=== PATIENT | male | born 1995 | race Caucasian/White ===

== ENCOUNTER 2017-05-03 10:18 | Emergency (ER) | payer OTHER ==
[2017-05-03 10:34] VITALS: BP 128/78
[2017-05-03] MEDS ORDERED: DEXAMETHASONE 10 MG/ML VIAL PO STA (12:36)
--- NOTE | 2017-05-03 12:39 | ED Physician Documentation ---
History of Present Illness - Stated complaint Stated Complaint: SPIDER BITE ON LEFT EYE - Chief complaint Chief Complaint: General - History obtained from History obtained from: Patient - History of Present Illness Timing: Last night Pain level max: 4 Pain level now: 1 - Additonal information Additional information: Patient is a 21-year-old male who woke up this morning with swelling and redness underneath the left eye. This has since nearly resolved. States he is unsure what happened, thinks a spider may have bit him in his sleep. No visual changes. No headache. No fever. Better with time, nothing makes it worse. Review of Systems Constitutional: denies: Fever, Chills Eyes: denies: Loss of vision, Decreased vision, Photophobia, Discharge, Irritation Ears: denies: Ear pain Nose: denies: Rhinorrhea / runny nose, Congestion Respiratory: denies: Cough PD PAST MEDICAL HISTORY - Past Medical History Past Medical History: No - Past Surgical History Past Surgical History: No - Present Medications Home Medications: Ambulatory Orders Medication Instructions Recorded Confirmed No Known Home Medications [No 05/03/17 05/03/17 Known Home Medications] - Allergies Allergies/Adverse Reactions: Allergies Allergy/AdvReac Type Severity Reaction Status Date / Time No Known Drug Allergies Allergy Verified 05/03/17 10:34 - Social History Does the pt smoke?: Yes Smoking Status: Current every day smoker Does the pt drink ETOH?: No Does the pt have substance abuse?: No - Immunizations Immunizations are current?: Yes Immunizations: TDAP current <10years - POLST Patient has POLST: No PD ED PE NORMAL - Vitals Vital signs reviewed: Yes - General General: Alert and oriented X 3, No acute distress - HEENT HEENT: PERRL, EOMI, Ears normal, Moist mucous membranes, Other (Minimal swelling to the upper left cheek. Normal eyelid. No stye. ) - Neck Neck: Supple, no meningeal sign - Derm Derm: Warm and dry - Neuro Neuro: Alert and oriented X 3 Results - Vitals Vitals: Vital Signs - 24 hr 05/03/17 10:31 Temperature 36.5 C Heart Rate 66 Respiratory 20 Rate Blood Pressure 128/78 O2 Saturation 100 Oxygen O2 Source Room air PD MEDICAL DECISION MAKING - ED course Complexity details: considered differential, d/w patient ED course: Patient is a 21-year-old male who presents to the emergency department with what appears to be a slight allergic reaction, possibly secondary to an insect bite on the left cheek today. This is nearly resolved in the emergency department. No evidence of abscess. No cellulitis. No evidence of orbital cellulitis. No discharge from the eye. No conjunctivitis. Normal lid examination. Patient counseled regarding signs and symptoms for which I believe and urgent re-evaluation would be necessary. Patient with good understanding of and agreement to plan and is comfortable going home at this time This document was made in part using voice recognition software. While efforts are made to proofread this document, sound alike and grammatical errors may occur. Departure - Departure Disposition: 01 Home, Self Care Clinical Impression: Allergic reaction Qualifiers: Encounter type: initial encounter Qualified Code(s): T78.40XA - Allergy, unspecified, initial encounter Condition: Good Instructions: ED Allergic Reaction Local Other Follow-Up: NEETA HANLEY MD [Primary Care Provider] - Within 1 week Comments: Return if you worsen. You can also use benadryl at home for swelling. Discharge Date/Time: 05/03/17 12:44
== END 2017-05-03 12:44 | disposition home or self-care (01) ==
LOC: ED 10:18
DX: T78.40XA Allergy, unspecified, initial encounter (principal); X58.XXXA Exposure to other specified factors, initial encounter; F17.200 Nicotine dependence, unspecified, uncomplicated
CPT/HCPCS: 99283

== ENCOUNTER 2017-07-09 06:50 | Emergency (ER) | payer OTHER ==
[2017-07-09 07:11] LABS: BILIRUBIN,URINE NEGATIVE (NEGATIVE); CLARITY,URINE CLEAR (CLEAR); GLUCOSE, URINE (UA) NEGATIVE (NEGATIVE); KETONES,URINE (UA) NEGATIVE (NEGATIVE); LEUKOCYTE ESTERASE, URINE NEGATIVE (NEGATIVE); NITRITE,URINE NEGATIVE (NEGATIVE); OCCULT BLOOD,URINE NEGATIVE (NEGATIVE); PROTEIN,URINE NEGATIVE (NEGATIVE); UROBILINOGEN,URINE 0.2 (NORMAL) E.U./dL (NORMAL)
--- NOTE | 2017-07-09 07:33 | ED Physician Documentation ---
PD HPI NVD - Stated complaint Stated Complaint: N/V/D - Chief complaint Chief Complaint: Abd Pain - History obtained from History obtained from: Patient, Family - History of Present Illness Timing - onset: Last night Timing - duration: Hours Timing - details: Abrupt onset, Still present Associated symptoms: Abdominal pain, Loss of appetite Contributing factors: Sick contact Improved by: Laying still Similar symptoms before: Has not had sx before Recently seen: Not recently seen - Additonal information Additional information: 21-year-old male previously well as developed acute nausea vomiting and diarrhea last night. He and his both ate the same thing they had some chicken she is well he is not. He does note that others at work have been ill with the flu. He has had both diarrhea and vomiting about 4 times last night. Review of Systems Constitutional: denies: Fever Eyes: denies: Decreased vision Ears: denies: Ear pain Nose: denies: Congestion Throat: denies: Sore throat Cardiac: denies: Chest pain / pressure Respiratory: denies: Dyspnea, Cough GI: reports: Abdominal Pain, Nausea, Vomiting, Diarrhea : denies: Dysuria, Frequency Skin: denies: Rash Musculoskeletal: denies: Neck pain, Back pain, Extremity pain Neurologic: denies: Generalized weakness, Focal weakness PD PAST MEDICAL HISTORY - Past Medical History Past Medical History: No - Past Surgical History Past Surgical History: No - Present Medications Home Medications: Ambulatory Orders Medication Instructions Recorded Confirmed Cyclobenzaprine [Flexeril] 10 mg PO PRN PRN 07/09/17 07/09/17 Ondansetron Odt [Zofran] 4 mg TL Q6H PRN #10 tablet 07/09/17 - Allergies Allergies/Adverse Reactions: Allergies Allergy/AdvReac Type Severity Reaction Status Date / Time No Known Drug Allergies Allergy Verified 07/09/17 07:01 - Social History Does the pt smoke?: Yes Smoking Status: Current every day smoker Does the pt drink ETOH?: No Does the pt have substance abuse?: No - Immunizations Immunizations are current?: Yes Immunizations: TDAP current <10years - POLST Patient has POLST: No PD ED PE NORMAL - Vitals Vital signs reviewed: Yes (Tachycardic and hypertensive) - General General: Alert and oriented X 3, No acute distress, Well developed/nourished - HEENT HEENT: Atraumatic, PERRL - Neck Neck: Supple, no meningeal sign - Cardiac Cardiac: No murmur, Other (Tachycardic to 110) - Respiratory Respiratory: No respiratory distress, Clear bilaterally - Abdomen Abdomen: Soft, Other (Mild left upper quadrant and left-sided tenderness.No guarding or rebound tenderness) - Back Back: No CVA TTP, No spinal TTP - Derm Derm: Normal color, Warm and dry, No rash - Extremities Extremities: No deformity, No edema - Neuro Neuro: Alert and oriented X 3, 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 2-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, No motor deficit, No sensory deficit, Normal speech Eye Opening: Spontaneous Motor: Obeys Commands Verbal: Oriented GCS Score: 15 - Psych Psych: Normal mood, Normal affect Results - Vitals Vitals: Vital Signs - 24 hr 07/09/17 07/09/17 06:58 08:49 Temperature 36.6 C Heart Rate 109 H 85 Respiratory 17 16 Rate Blood Pressure 147/92 H 146/88 H O2 Saturation 99 100 Oxygen O2 Source Room air - Labs Labs: Laboratory Tests 07/09/17 07/09/17 07/09/17 06:50 07:51 07:51 WBC 12.3 H RBC 5.15 Hgb 15.8 Hct 45.0 MCV 87.5 MCH 30.7 MCHC 35.2 RDW 12.8 Plt Count 245 MPV 7.7 Neut # 10.0 H Lymph # 1.7 Millard # 0.4 Eos # 0.0 Baso # 0.1 Absolute Nucleated RBC 0.00 Nucleated RBC % 0.0 Sodium 137 Potassium 4.1 Chloride 100 L Carbon Dioxide 26 Anion Gap 11.0 BUN 13 Creatinine 0.6 Estimated GFR (MDRD) 174 Glucose 102 H Calcium 9.7 Total Bilirubin 0.9 AST 43 H ALT 45 Alkaline Phosphatase 51 Total Protein 7.7 Albumin 4.9 Globulin 2.8 Albumin/Globulin Ratio 1.8 Lipase < 10 L Urine Color LIGHT YELLOW Urine Clarity CLEAR Urine pH 7.0 Ur Specific Glasco 1.010 Urine Protein NEGATIVE Urine Glucose (UA) NEGATIVE Urine Ketones NEGATIVE Urine Occult Blood NEGATIVE Urine Nitrite NEGATIVE Urine Bilirubin NEGATIVE Urine Urobilinogen 0.2 (NORMAL) Ur Leukocyte Esterase NEGATIVE Ur Microscopic Review NOT INDICATED Urine Culture Comments NOT INDICATED PD MEDICAL DECISION MAKING - ED course Complexity details: reviewed results, re-evaluated patient, considered differential, d/w patient, d/w family ED course: 21-year-old male with acute gastroenteritis appears somewhat dehydrated he is administered a liter of saline and 4 mg of Zofran he feels much improved. Departure - Departure Disposition: 01 Home, Self Care Clinical Impression: Gastroenteritis Condition: Stable Instructions: ED Gastroenteritis Viral Follow-Up: [facility] Quniter[facility] [Provider Group] Prescriptions: Ondansetron Odt [Zofran] 4 mg TL Q6H PRN #10 tablet PRN Reason: Nausea / Vomiting Forms: Activity restrictions Discharge Date/Time: 07/09/17 09:13
[2017-07-09] MEDS ORDERED: SODIUM CHLORIDE 0.9% 1,000 ML IV ONE (07:34)
[2017-07-09] MEDS ORDERED: ONDANSETRON 4 MG/2 ML VIAL IVP STA (07:34)
[2017-07-09 08:10] LABS: BASOPHILS # (AUTO) 0.1 10^3/uL (0.0-0.1); BASOPHILS % (AUTO) 0.7 %; EOSINOPHILS % (AUTO) 0.4 %; HGB - HEMOGLOBIN 15.8 g/dL (14.0-18.0); LYMPHOCYTES # (AUTO) 1.7 10^3/uL (1.5-3.5); MEAN CORPUSCULAR HEMOGLOBIN 30.7 pg (27.0-31.0); MEAN CORPUSCULAR HGB CONC 35.2 g/dL (32.0-36.0); MEAN CORPUSCULAR VOLUME 87.5 fL (80.0-94.0); MEAN PLATELET VOLUME 7.7 fL (7.4-11.4); MONOCYTES # (AUTO) 0.4 10^3/uL (0.0-1.0); MONOCYTES % (AUTO) 3.5 %; NEUTROPHILS % (AUTO) 81.4 %; PLT - PLATELET COUNT 245 10^3/uL (130-450); RED BLOOD COUNT 5.15 10^6/uL (4.70-6.10); RED CELL DISTRIBUTION WIDTH 12.8 % (12.0-15.0); WHITE BLOOD COUNT 12.3 x10^3/uL (4.8-10.8)
[2017-07-09 08:27] LABS: ALBUMIN 4.9 g/dL (3.2-5.5); ALBUMIN/GLOBULIN RATIO 1.8 (1.0-2.2); ALKALINE PHOSPHATASE 51 IU/L (42-121); ALT ALANINE AMINOTRANSFERASE 45 IU/L (10-60); AST ASPARTATE AMINOTRANSFERASE 43 IU/L (10-42); BILIRUBIN,TOTAL 0.9 mg/dL (0.2-1.0); BUN - BLOOD UREA NITROGEN 13 mg/dL (6-20); CALCIUM 9.7 mg/dL (8.5-10.3); CARBON DIOXIDE - CO2 26 mmol/L (21-32); CHLORIDE 100 mmol/L (101-111); CREATININE 0.6 mg/dL (0.6-1.2); GFR - MDRD 174 (>89); GLUCOSE 102 mg/dL (70-100); SODIUM 137 mmol/L (135-145); TOTAL PROTEIN 7.7 g/dL (6.7-8.2)
[2017-07-09 08:28] LABS: LIPASE < 10 U/L (22-51)
[2017-07-09 08:50] VITALS: BP 146/88
== END 2017-07-09 09:13 | disposition home or self-care (01) ==
LOC: ED 06:50
DX: K52.9 Noninfective gastroenteritis and colitis, unspecified (principal); F17.200 Nicotine dependence, unspecified, uncomplicated
CPT/HCPCS: 36415; 80053; 81001; 81003; 83690; 85025; 87086; 96361; 96374; 99283; 99284

== ENCOUNTER 2017-10-27 18:59 | Emergency (ER) | payer OTHER ==
[2017-10-27 19:15] VITALS: BP 149/86
[2017-10-27] MEDS ORDERED: IBUPROFEN 800 MG TABLET PO STA (19:47)
--- NOTE | 2017-10-27 19:49 | ED Physician Documentation ---
PD HPI LOWER EXT INJURY - Stated complaint Stated Complaint: TOE INJURIES - Chief complaint Chief Complaint: Trauma Ext - History obtained from History obtained from: Patient - History of Present Illness PD HPI LOW EXT INJURY LOCATION: Left, Toe (2nd and 3rd toes) Type of injury: Other (accidentally kicked a table) Where injury occurred: Home Timing - onset: Last night Timing - duration: Days (1) Timing - details: Abrupt onset Pain level max: 6 Pain level now: 4 Improved by: Rest Worsened by: Moving, Palpating, Other (walking) Associated symptoms: No: Numbness, Tingling, Swelling Similar symptoms before: Has not had sx before Recently seen: Not recently seen Review of Systems Neurologic: denies: Numbness PD PAST MEDICAL HISTORY - Past Medical History Past Medical History: No - Past Surgical History Past Surgical History: No - Present Medications Home Medications: Ambulatory Orders Medication Instructions Recorded Confirmed Cyclobenzaprine [Flexeril] 10 mg PO PRN PRN 07/09/17 07/09/17 Ondansetron Odt [Zofran] 4 mg TL Q6H PRN #10 tablet 07/09/17 Ibuprofen [Motrin] 800 mg PO Q8H PRN #30 tablet 10/27/17 - Allergies Allergies/Adverse Reactions: Allergies Allergy/AdvReac Type Severity Reaction Status Date / Time No Known Drug Allergies Allergy Verified 07/09/17 07:01 - Social History Does the pt smoke?: Yes Smoking Status: Current every day smoker Does the pt drink ETOH?: No Does the pt have substance abuse?: No - Immunizations Immunizations are current?: Yes Immunizations: TDAP current <10years - POLST Patient has POLST: No PD ED PE NORMAL - Vitals Vital signs reviewed: Yes (T36.7) - General General: Alert and oriented X 3 - Derm Derm: Warm and dry - Extremities Extremities: Other (L foot - TTP over the 2nd and 3rd toes. NVI. no subungual hematomas or nail injury. Otherwise normal examination of the foot) - Neuro Neuro: Alert and oriented X 3 Results - Vitals Vitals: Vital Signs - 24 hr 10/27/17 19:13 Heart Rate 98 Respiratory 16 Rate Blood Pressure 149/86 H O2 Saturation 99 Oxygen O2 Source Room air - Rads (name of study) Left foot x-ray Radiology: Prelim report reviewed, EMP read contemporaneously, See rad report ( Normal) PD MEDICAL DECISION MAKING - ED course Complexity details: reviewed results, re-evaluated patient, considered differential, d/w patient ED course: Patient is a 22-year-old male with a sprain of the left second and third toes. Placed in a postoperative shoe for comfort. Will use Motrin and Tylenol as needed for pain at home. Negative x-rays. Patient counseled regarding signs and symptoms for which I believe and urgent re-evaluation would be necessary. Patient with good understanding of and agreement to plan and is comfortable going home at this time This document was made in part using voice recognition software. While efforts are made to proofread this document, sound alike and grammatical errors may occur. No nail injury - Sepsis Event Vital Signs: Vital Signs - 24 hr 10/27/17 19:13 Heart Rate 98 Respiratory 16 Rate Blood Pressure 149/86 H O2 Saturation 99 Oxygen O2 Source Room air Departure - Departure Disposition: 01 Home, Self Care Clinical Impression: Toe sprain Qualifiers: Encounter type: initial encounter Qualified Code(s): S93.509A - Unspecified sprain of unspecified toe(s), initial encounter Condition: Good Instructions: ED Sprain Toe Follow-Up: NEETA HANLEY MD [Primary Care Provider] - Within 1 week Prescriptions: Ibuprofen [Motrin] 800 mg PO Q8H PRN #30 tablet PRN Reason: PAIN &/OR FEVER Comments: Return if you worsen. Wear the post op shoe as needed for comfort. You can also mar tape the toes. Your xrays are normal today. Discharge Date/Time: 10/27/17 20:07
--- NOTE | 2017-10-27 20:19 | XRAY Preliminary Report ---
Exam: XR FOOT 3 VIEW LT IMPRESSION: Normal foot radiography. [facility] SITE ID: [id number]
--- NOTE | 2017-10-27 20:19 | XRAY Report ---
EXAM: LEFT FOOT RADIOGRAPHY EXAM DATE: 10/27/2017 07:29 PM. CLINICAL HISTORY: Left foot pain, third and fourth digits. Stubbed toes. COMPARISON: None. TECHNIQUE: 3 views. FINDINGS: Bones: Normal. No fractures or bone lesions. Joints: Normal. No subluxations. Soft Tissues: Normal. No soft tissue swelling. Other: Artifact on the cassette projects over the soft tissues plantar to the calcaneus on the latera l view. IMPRESSION: Normal foot radiography. [facility] Referring Provider Line: [phone] SITE ID: [id number]
== END 2017-10-27 20:07 | disposition home or self-care (01) ==
LOC: ED 18:59
DX: S93.505A Unspecified sprain of left lesser toe(s), initial encounter (principal); W22.09XA Striking against other stationary object, initial encounter; F17.200 Nicotine dependence, unspecified, uncomplicated
CPT/HCPCS: 73630; 99283; A9270

== ENCOUNTER 2018-10-16 15:52 | Outpatient (CLI) | payer OTHER ==
--- NOTE | 2018-10-17 14:54 | MRI Report ---
Reason: SPRAIN OF UNSPECIFIED SITE OF LEFT KNEE,INITIAL EN Procedure Date: 10/16/2018 Accession Number: [id number] / [id number] Procedure: MRI - Knee LT W/O CPT Code: FULL RESULT: EXAM: LEFT KNEE MRI WITHOUT CONTRAST EXAM DATE: 10/16/2018 04:54 PM. CLINICAL HISTORY: Sprain of unspecified site of left knee, initial encounter. Injury 1 week ago. Medial lateral pain. Limited range of motion. COMPARISON: None. TECHNIQUE: Multiplanar, multisequence T1-weighted and fluid-sensitive sequences of the knee without contrast. Other: None. FINDINGS: Bones: Mild edema anterior aspect distal lateral femur metaphysis. Edema is seen at the anterior aspect lateral femoral condyle. Edema inferior aspect at medial patellar facet. Inferior aspect medial patellar facet osteochondral fracture. High position of the patella. Articular Cartilage: Unremarkable. Medial Meniscus: The medial meniscus is intact. Lateral Meniscus: The lateral meniscus is intact. Cruciate Ligaments: The anterior and posterior cruciate ligaments are intact. Collateral Ligaments: The medial collateral and lateral collateral ligamentous structures are intact. Tendons: The quadriceps, patellar, semimembranosus, and popliteus tendons are unremarkable. Musculature: No edema or fatty atrophy. Other: Large quantity of fluid patellar recesses. No popliteal cyst. No loose bodies. Partial tear medial patellar retinaculum at the medial patellar facet attachment. The subcutaneous tissues and fat pads are unremarkable. IMPRESSION: 1. Negative for meniscus tear or internal derangement. 2. Lateral patellar dislocation with nondisplaced osteochondral fracture inferior aspect medial patellar facet and partial tear medial patellar retinaculum at the medial patellar facet attachment. Correlate with sunrise view. 3. Mild edema anterior aspect medial femoral condyle. 4. Large joint fluid. [facility]
== END 2018-10-16 15:53 | disposition home or self-care (01) ==
LOC: DI 15:52
PROVIDERS: ATTEND Radiology Diagnostic Radiology
DX: S82.092A Other fracture of left patella, initial encounter for closed fracture (principal); R60.0 Localized edema; M25.462 Effusion, left knee

== ENCOUNTER 2019-04-18 07:26 | Emergency (ER) | payer OTHER ==
[2019-04-18] MEDS ORDERED: ACETAMINOPHEN 325 MG TABLET PO STA (07:47)
[2019-04-18] MEDS ORDERED: IBUPROFEN 600 MG TABLET PO STA (07:47)
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
[2019-04-18 08:35] VITALS: BP 153/89
== END 2019-04-18 08:35 | disposition home or self-care (01) ==
LOC: ED 07:26
DX: T76.21XA Adult sexual abuse, suspected, initial encounter (principal); F17.200 Nicotine dependence, unspecified, uncomplicated
CPT/HCPCS: 99282; A9270